=== PATIENT | male | born 1980 | race Caucasian/White ===

== ENCOUNTER 2022-06-25 14:43 | Emergency (ER) | payer SELFPAY ==
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
[2022-06-25 14:52] VITALS: BP 180/110; PULSE 99; RESP 20; TEMP 36.7; O2SAT 100
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
== END 2022-06-25 15:38 | disposition home or self-care (01) ==
PROVIDERS: Emergency Provider Nurse Practitioner Family
DX: S60.222A Contusion of left hand, initial encounter (principal); W22.8XXA Striking against or struck by other objects, initial encounter; I10 Essential (primary) hypertension; Z91.14 Patient's other noncompliance with medication regimen
CPT/HCPCS: 73110; 73130; 99213; G0463